=== PATIENT | male | born 1970 | race Caucasian/White ===

== ENCOUNTER 2020-06-14 10:11 | Inpatient (IN) | payer MEDICAID ==
[2020-06-14] VITALS (8 sets, daily range): BP systolic 110–141; BP diastolic 67–85
[~2020-06-14] VITALS: Ht 175.2 cm; Wt 81.0 kg
[~2020-06-14 10:11] MED LIST: AUGMENTIN 875875 MG PO; BACTRIM DS 8001 TA1 PO; FLEXERIL5 MG PO; HYDROCODONE BIT1 T11 PO; MEDROL DOSEPAK4 MG PO; PREDNISONE20 MG PO; PRILOSEC40 M1 PO; ZYRTEC10 MG PO
[2020-06-14 10:21] LABS: BASO % 0.4 % (0.0-1.0); EOS # 0.5 10*3/uL (0.0-0.4); HEMATOCRIT 43.9 % (42.0-52.0); LYMPH # 2.8 10*3/uL (1.3-4.4); LYMPH % 25.7 % (27.0-41.0); MEAN CELL VOLUME 94.6 fl (80.0-94.0); MEAN CORPUSCULAR HGB 31.3 pg (27.0-31.0); MEAN PLATELET VOLUME 10.3 fl (9.6-12.3); MONO % 9.1 % (3.0-9.0); NEUT # 6.5 10*3/uL (2.3-7.9); NEUT % 59.4 % (47.0-73.0); PLATELET COUNT AUTOMATED 270 10*3/uL (130-400); RED BLOOD COUNT 4.64 10*6/uL (4.50-5.90); RED CELL DISTRI WIDTH 12.5 % (0-14.5); WHITE BLOOD COUNT 10.9 10*3/uL (4.8-10.8)
[2020-06-14 10:36] LABS: ACT PARTIAL THROMBO TIME 28.2 SECONDS (20.0-32.1)
[2020-06-14 10:38] LABS: ALBUMIN 3.8 gm/dl (3.1-4.5); ALKALINE PHOSPHATASE 89 U/L (45-117); BUN 13 mg/dl (7-24); CHLORIDE 104 mmol/L (98-107); CREATININE 1.03 mg/dL (0.70-1.30); POTASSIUM 4.1 mmol/L (3.5-5.1); SGOT/AST 25 IU/L (3-35); SGPT/ALT 28 U/L (12-78); SODIUM 137 mmol/L (136-145); TOTAL PROTEIN 7.8 gm/dL (6.4-8.2)
[2020-06-14 10:42] LABS: TROPONIN I < 0.015 ng/ml (<0.045)
[2020-06-14] MEDS ORDERED: NEURONTIN100 MG PO (14:59)
[2020-06-15] VITALS (9 sets, daily range): BP systolic 95–145; BP diastolic 53–81
[2020-06-15 06:19] LABS: BASO % 0.2 % (0.0-1.0); EOS # 0.5 10*3/uL (0.0-0.4); EOS % 3.4 % (1.0-4.0); HEMATOCRIT 47.9 % (42.0-52.0); LYMPH # 2.8 10*3/uL (1.3-4.4); LYMPH % 19.7 % (27.0-41.0); MEAN CELL VOLUME 94.3 fl (80.0-94.0); MEAN CORPUSCULAR HGB 30.9 pg (27.0-31.0); MEAN CORPUSCULAR HGB CONC 32.8 g/dl (33.0-37.0); MEAN PLATELET VOLUME 10.6 fl (9.6-12.3); MONO # 1.4 10*3/uL (0.1-1.0); MONO % 9.6 % (3.0-9.0); NEUT # 9.6 10*3/uL (2.3-7.9); NEUT % 66.7 % (47.0-73.0); PLATELET COUNT AUTOMATED 294 10*3/uL (130-400); RED BLOOD COUNT 5.08 10*6/uL (4.50-5.90); RED CELL DISTRI WIDTH 12.4 % (0-14.5); WHITE BLOOD COUNT 14.4 10*3/uL (4.8-10.8)
[2020-06-15 06:48] LABS: BUN 13 mg/dl (7-24); CHLORIDE 102 mmol/L (98-107); CHOLESTEROL 267 mg/dL (<200); CREATININE 1.13 mg/dL (0.70-1.30); HDL CHOLESTEROL 77 mg/dl (40-60); LDL CHOLESTEROL 154 mg/dL (9-159); POTASSIUM 4.1 mmol/L (3.5-5.1); SODIUM 135 mmol/L (136-145); TRIGLYCERIDES 181 mg/dl (<150); VLDL CHOLESTEROL 36 mg/dL (6-40)
[2020-06-15 06:55] LABS: FREE T4 0.82 ng/dl (0.76-1.46)
[2020-06-15 08:20] LABS: VITAMIN D, 25-HYDROXY 24.3 ng/mL (30-100)
[2020-06-16] VITALS: BP 107/60
[2020-06-16] MEDS ORDERED: ATORVASTATIN CA20 M1 PO (10:53)
[2020-06-16] MEDS ORDERED: CARAFATE1 G1 PO (10:53)
== END 2020-06-16 11:30 | disposition home or self-care (01) | DRG 392 ==
LOC: ED 10:11 → EDHOLD 11:49 → 4E 11:49
PROVIDERS: Emergency Medicine; Hospitalist; ADMIT Family Medicine; ATTEND Family Medicine
PROC: 0DB78ZX Excision of Stomach, Pylorus, Via Natural or Artificial Opening Endoscopic, Diagnostic (ICD-10-PCS; principal; 2020-06-15)
PROC: 0DB38ZX Excision of Lower Esophagus, Via Natural or Artificial Opening Endoscopic, Diagnostic (ICD-10-PCS; 2020-06-15)
PROC: 4A02XM4 Measurement of Cardiac Total Activity, External Approach (ICD-10-PCS; 2020-06-15)
PROC: 3E073KZ Introduction of Other Diagnostic Substance into Coronary Artery, Percutaneous Approach (ICD-10-PCS; 2020-06-15)
DX: K29.00 Acute gastritis without bleeding (principal); K21.00 Gastro-esophageal reflux disease with esophagitis, without bleeding; K29.80 Duodenitis without bleeding; G62.9 Polyneuropathy, unspecified; F12.90 Cannabis use, unspecified, uncomplicated; R00.1 Bradycardia, unspecified; E78.5 Hyperlipidemia, unspecified; F17.220 Nicotine dependence, chewing tobacco, uncomplicated; D72.829 Elevated white blood cell count, unspecified; Z71.6 Tobacco abuse counseling; Z82.49 Family history of ischemic heart disease and other diseases of the circulatory system; Z83.6 Family history of other diseases of the respiratory system; Z91.013 Allergy to seafood; Z79.899 Other long term (current) drug therapy

== ENCOUNTER 2021-02-09 11:51 | Inpatient (IN) | payer OTHER ==
[~2021-02-09] VITALS: Ht 175.3 cm; Wt 73.5 kg
[~2021-02-09 11:51] MED LIST changes: +ATORVASTATIN CA20 M1 PO; +CARAFATE1 G1 PO; +NEURONTIN100 MG PO
[2021-02-09 11:54] VITALS: BP 119/63
[2021-02-09 14:05] LABS: BASO # 0.1 10*3/uL (0.0-0.1); BASO % 0.3 % (0.0-1.0); EOS # 0.3 10*3/uL (0.0-0.4); EOS % 1.6 % (1.0-4.0); HEMATOCRIT 43.2 % (42.0-52.0); LYMPH # 1.9 10*3/uL (1.3-4.4); LYMPH % 11.9 % (27.0-41.0); MEAN CELL VOLUME 93.5 fl (80.0-94.0); MEAN CORPUSCULAR HGB 30.7 pg (27.0-31.0); MEAN CORPUSCULAR HGB CONC 32.9 g/dl (33.0-37.0); MEAN PLATELET VOLUME 10.7 fl (9.6-12.3); MONO # 1.4 10*3/uL (0.1-1.0); MONO % 9.1 % (3.0-9.0); NEUT # 11.9 10*3/uL (2.3-7.9); NEUT % 76.8 % (47.0-73.0); PLATELET COUNT AUTOMATED 258 10*3/uL (130-400); RED BLOOD COUNT 4.62 10*6/uL (4.50-5.90); RED CELL DISTRI WIDTH 13.2 % (0-14.5); WHITE BLOOD COUNT 15.6 10*3/uL (4.8-10.8)
[2021-02-09 14:21] LABS: ALBUMIN 3.9 gm/dl (3.1-4.5); ALKALINE PHOSPHATASE 98 U/L (45-117); BUN 11 mg/dl (7-24); CHLORIDE 106 mmol/L (98-107); POTASSIUM 4.3 mmol/L (3.5-5.1); SGOT/AST 12 IU/L (3-35); SGPT/ALT 18 U/L (12-78); SODIUM 138 mmol/L (136-145)
[2021-02-09 17:13] VITALS: BP 112/53
[2021-02-09] MEDS ORDERED: METRONIDAZOLE500 M1 PO (17:24)
[2021-02-09] MEDS ORDERED: PENICILLIN VK500 MG PO (17:24)
[2021-02-09 21:03] VITALS: BP 118/73
[2021-02-10 05:18] LABS: ALBUMIN 3.4 gm/dl (3.1-4.5); ALKALINE PHOSPHATASE 92 U/L (45-117); BUN 9 mg/dl (7-24); CHLORIDE 106 mmol/L (98-107); CREATININE 0.97 mg/dL (0.70-1.30); FREE T4 1.03 ng/dl (0.76-1.46); SGOT/AST 12 IU/L (3-35); SGPT/ALT 16 U/L (12-78); SODIUM 138 mmol/L (136-145); TOTAL PROTEIN 7.4 gm/dL (6.4-8.2)
[2021-02-10 05:57] LABS: BASO % 0.2 % (0.0-1.0); EOS # 0.4 10*3/uL (0.0-0.4); EOS % 2.8 % (1.0-4.0); HEMATOCRIT 42.9 % (42.0-52.0); LYMPH # 2.2 10*3/uL (1.3-4.4); LYMPH % 15.9 % (27.0-41.0); MEAN CELL VOLUME 93.7 fl (80.0-94.0); MEAN CORPUSCULAR HGB 30.8 pg (27.0-31.0); MEAN CORPUSCULAR HGB CONC 32.9 g/dl (33.0-37.0); MEAN PLATELET VOLUME 11.3 fl (9.6-12.3); MONO # 1.4 10*3/uL (0.1-1.0); NEUT # 9.8 10*3/uL (2.3-7.9); NEUT % 70.8 % (47.0-73.0); PLATELET COUNT AUTOMATED 257 10*3/uL (130-400); RED BLOOD COUNT 4.58 10*6/uL (4.50-5.90); RED CELL DISTRI WIDTH 13.2 % (0-14.5); WHITE BLOOD COUNT 13.9 10*3/uL (4.8-10.8)
[2021-02-10 07:30] VITALS: BP 199/60
[2021-02-10 09:38] VITALS: BP 114/67
[2021-02-10 17:20] VITALS: BP 148/67
[2021-02-10 20:00] VITALS: BP 105/61
[2021-02-11] VITALS: BP 100/50
[2021-02-11 06:37] LABS: BASO % 0.1 % (0.0-1.0); EOS % 0.3 % (1.0-4.0); HEMATOCRIT 41.7 % (42.0-52.0); LYMPH # 2.5 10*3/uL (1.3-4.4); LYMPH % 17.7 % (27.0-41.0); MEAN CELL VOLUME 92.1 fl (80.0-94.0); MEAN CORPUSCULAR HGB 30.7 pg (27.0-31.0); MEAN CORPUSCULAR HGB CONC 33.3 g/dl (33.0-37.0); MEAN PLATELET VOLUME 10.4 fl (9.6-12.3); MONO # 1.3 10*3/uL (0.1-1.0); MONO % 9.5 % (3.0-9.0); NEUT # 10.2 10*3/uL (2.3-7.9); PLATELET COUNT AUTOMATED 277 10*3/uL (130-400); RED BLOOD COUNT 4.53 10*6/uL (4.50-5.90); RED CELL DISTRI WIDTH 12.6 % (0-14.5); WHITE BLOOD COUNT 14.2 10*3/uL (4.8-10.8)
[2021-02-11 06:50] LABS: BUN 11 mg/dl (7-24); CHLORIDE 107 mmol/L (98-107); CREATININE 0.93 mg/dL (0.70-1.30); POTASSIUM 3.9 mmol/L (3.5-5.1); SODIUM 137 mmol/L (136-145)
[2021-02-11 08:00] VITALS: BP 117/72
[2021-02-11 12:00] VITALS: BP 123/60
[2021-02-11 16:00] VITALS: BP 128/75
[2021-02-11 20:00] VITALS: BP 126/70
[2021-02-12 00:20] VITALS: BP 115/59
[2021-02-12 06:42] LABS: BASO % 0.5 % (0.0-1.0); EOS # 0.5 10*3/uL (0.0-0.4); EOS % 6.4 % (1.0-4.0); HEMATOCRIT 42.6 % (42.0-52.0); LYMPH # 2.7 10*3/uL (1.3-4.4); LYMPH % 36.1 % (27.0-41.0); MEAN CELL VOLUME 94.5 fl (80.0-94.0); MEAN CORPUSCULAR HGB 30.6 pg (27.0-31.0); MEAN CORPUSCULAR HGB CONC 32.4 g/dl (33.0-37.0); MEAN PLATELET VOLUME 10.8 fl (9.6-12.3); MONO # 0.7 10*3/uL (0.1-1.0); MONO % 9.5 % (3.0-9.0); NEUT # 3.5 10*3/uL (2.3-7.9); NEUT % 47.1 % (47.0-73.0); PLATELET COUNT AUTOMATED 294 10*3/uL (130-400); RED BLOOD COUNT 4.51 10*6/uL (4.50-5.90); RED CELL DISTRI WIDTH 12.8 % (0-14.5); WHITE BLOOD COUNT 7.4 10*3/uL (4.8-10.8)
[2021-02-12 06:51] LABS: BUN 13 mg/dl (7-24); CHLORIDE 106 mmol/L (98-107); POTASSIUM 4.2 mmol/L (3.5-5.1); SODIUM 139 mmol/L (136-145)
[2021-02-12 08:00] VITALS: BP 117/66
[2021-02-12 12:00] VITALS: BP 137/72
[2021-02-12] MEDS ORDERED: CLINDAMYCIN HC300 MG PO (13:06)
== END 2021-02-12 14:08 | disposition home or self-care (01) | DRG 114 ==
LOC: ED 11:51 → EDHOLD 17:27 → 5E 17:27
PROVIDERS: Internal Medicine; Student in an Organized Health Care Education/Training Program; ADMIT Emergency Medicine; ATTEND Emergency Medicine
DX: K04.7 Periapical abscess without sinus (principal); K21.9 Gastro-esophageal reflux disease without esophagitis; K44.9 Diaphragmatic hernia without obstruction or gangrene; D64.9 Anemia, unspecified; R00.1 Bradycardia, unspecified; R73.9 Hyperglycemia, unspecified; G62.9 Polyneuropathy, unspecified; L03.211 Cellulitis of face; Z91.013 Allergy to seafood; Z82.49 Family history of ischemic heart disease and other diseases of the circulatory system; Z82.5 Family history of asthma and other chronic lower respiratory diseases; Z68.23 Body mass index [BMI] 23.0-23.9, adult

== ENCOUNTER → 2021-06-14 | Outpatient (CLI) | payer OTHER ==
[~2021-06-14] MED LIST changes: +CLINDAMYCIN HC300 MG PO; +METRONIDAZOLE500 M1 PO; +PENICILLIN VK500 MG PO
== END | disposition home or self-care (01) ==
LOC: US 10:47
PROVIDERS: ATTEND Preventive Medicine Occupational Medicine
DX: K80.20 Calculus of gallbladder without cholecystitis without obstruction (principal); K82.8 Other specified diseases of gallbladder; R63.4 Abnormal weight loss; R10.11 Right upper quadrant pain; R11.0 Nausea

== ENCOUNTER 2021-08-18 18:17 | Inpatient (IN) | payer OTHER ==
[~2021-08-18] VITALS: Ht 172.7 cm; Wt 67.6 kg
[2021-08-18 18:55] VITALS: BP 104/61
[2021-08-18 19:08] LABS: BASO % 0.4 % (0.0-1.0); EOS # 0.3 10*3/uL (0.0-0.4); EOS % 2.6 % (1.0-4.0); LYMPH # 2.7 10*3/uL (1.3-4.4); LYMPH % 25.4 % (27.0-41.0); MEAN CELL VOLUME 92.8 fl (80.0-94.0); MEAN CORPUSCULAR HGB 30.9 pg (27.0-31.0); MEAN CORPUSCULAR HGB CONC 33.3 g/dl (33.0-37.0); MEAN PLATELET VOLUME 9.9 fl (9.6-12.3); MONO % 9.4 % (3.0-9.0); NEUT # 6.6 10*3/uL (2.3-7.9); NEUT % 61.9 % (47.0-73.0); PLATELET COUNT AUTOMATED 230 10*3/uL (130-400); RED BLOOD COUNT 3.88 10*6/uL (4.50-5.90); RED CELL DISTRI WIDTH 13.5 % (0-14.5); WHITE BLOOD COUNT 10.6 10*3/uL (4.8-10.8)
[2021-08-18 19:19] LABS: ACT PARTIAL THROMBO TIME 29.5 SECONDS (20.0-32.1)
[2021-08-18 19:26] LABS: ALKALINE PHOSPHATASE 72 U/L (45-117); BUN 11 mg/dl (7-24); CHLORIDE 109 mmol/L (98-107); CREATININE 0.81 mg/dL (0.70-1.30); POTASSIUM 3.7 mmol/L (3.5-5.1); SGOT/AST 21 IU/L (3-35); SGPT/ALT 22 U/L (12-78); SODIUM 141 mmol/L (136-145); TOTAL PROTEIN 6.5 gm/dL (6.4-8.2)
[2021-08-18 21:52] VITALS: BP 96/48
[2021-08-18] MEDS ORDERED: VITAMIN D325 MCG PO (23:41)
[2021-08-19 00:56] LABS: BILIRUBIN Negative (Negative); BLOOD Negative (Negative); CLARITY Clear (Clear); COLOR Yellow (Yellow); GLUCOSE Negative (Negative); KETONE Negative (Negative); LEUKO ESTERASE Trace (Negative); NITRITE Negative (Negative); PH 6.5 (4.5-8.0)
[2021-08-19 01:11] VITALS: BP 108/65
[2021-08-19 01:17] LABS: BACTERIA TRACE; MUCOUS 1+
[2021-08-19 01:20] VITALS: BP 112/71
[2021-08-19 08:00] VITALS: BP 122/63
[2021-08-19 12:00] VITALS: BP 112/67
[2021-08-19 16:00] VITALS: BP 110/63
[2021-08-19 20:00] VITALS: BP 109/49
[2021-08-20] VITALS (11 sets, daily range): BP systolic 108–144; BP diastolic 59–81
[2021-08-20 06:16] LABS: BASO % 0.5 % (0.0-1.0); EOS # 0.3 10*3/uL (0.0-0.4); EOS % 5.2 % (1.0-4.0); HEMATOCRIT 36.2 % (42.0-52.0); LYMPH # 1.9 10*3/uL (1.3-4.4); LYMPH % 33.1 % (27.0-41.0); MEAN CELL VOLUME 92.8 fl (80.0-94.0); MEAN CORPUSCULAR HGB 31.3 pg (27.0-31.0); MEAN CORPUSCULAR HGB CONC 33.7 g/dl (33.0-37.0); MEAN PLATELET VOLUME 10.4 fl (9.6-12.3); MONO # 0.5 10*3/uL (0.1-1.0); MONO % 8.8 % (3.0-9.0); NEUT # 2.9 10*3/uL (2.3-7.9); NEUT % 52.2 % (47.0-73.0); PLATELET COUNT AUTOMATED 232 10*3/uL (130-400); RED CELL DISTRI WIDTH 13.4 % (0-14.5); WHITE BLOOD COUNT 5.6 10*3/uL (4.8-10.8)
[2021-08-20 06:32] LABS: BUN 6 mg/dl (7-24); CHLORIDE 110 mmol/L (98-107); POTASSIUM 3.9 mmol/L (3.5-5.1); SODIUM 142 mmol/L (136-145)
[2021-08-20 06:38] LABS: ALKALINE PHOSPHATASE 59 U/L (45-117); CREATININE 0.89 mg/dL (0.70-1.30); SGOT/AST 20 IU/L (3-35); SGPT/ALT 19 U/L (12-78)
[2021-08-21] VITALS: BP 104/46
[2021-08-21 05:47] LABS: BUN 9 mg/dl (7-24); CHLORIDE 108 mmol/L (98-107); CREATININE 0.89 mg/dL (0.70-1.30); POTASSIUM 3.9 mmol/L (3.5-5.1); SODIUM 141 mmol/L (136-145)
[2021-08-21 06:19] LABS: BASO % 0.1 % (0.0-1.0); HEMATOCRIT 34.8 % (42.0-52.0); LYMPH # 1.1 10*3/uL (1.3-4.4); LYMPH % 10.6 % (27.0-41.0); MEAN CELL VOLUME 92.8 fl (80.0-94.0); MEAN CORPUSCULAR HGB 31.5 pg (27.0-31.0); MEAN CORPUSCULAR HGB CONC 33.9 g/dl (33.0-37.0); MONO % 9.9 % (3.0-9.0); NEUT # 8.2 10*3/uL (2.3-7.9); NEUT % 79.1 % (47.0-73.0); PLATELET COUNT AUTOMATED 224 10*3/uL (130-400); RED BLOOD COUNT 3.75 10*6/uL (4.50-5.90); RED CELL DISTRI WIDTH 13.1 % (0-14.5); WHITE BLOOD COUNT 10.3 10*3/uL (4.8-10.8)
[2021-08-21 08:00] VITALS: BP 118/52
[2021-08-21] MEDS ORDERED: HYDROCODONE-AC1 EAC1 PO (10:54)
[2021-08-21 12:00] VITALS: BP 137/76
== END 2021-08-21 14:00 | disposition home or self-care (01) | DRG 263 ==
LOC: ED 18:17 → EDHOLD 23:57 → 5E 23:57
PROVIDERS: Emergency Medicine; Internal Medicine; ADMIT Internal Medicine; ATTEND Internal Medicine
PROC: 3E0T3BZ Introduction of Anesthetic Agent into Peripheral Nerves and Plexi, Percutaneous Approach (ICD-10-PCS; principal; 2021-08-20)
PROC: 3E0T33Z Introduction of Anti-inflammatory into Peripheral Nerves and Plexi, Percutaneous Approach (ICD-10-PCS; 2021-08-20)
PROC: 0FT44ZZ Resection of Gallbladder, Percutaneous Endoscopic Approach (ICD-10-PCS; 2021-08-20)
DX: K80.12 Calculus of gallbladder with acute and chronic cholecystitis without obstruction (principal); K21.9 Gastro-esophageal reflux disease without esophagitis; G62.9 Polyneuropathy, unspecified; F12.90 Cannabis use, unspecified, uncomplicated; D64.9 Anemia, unspecified; E87.8 Other disorders of electrolyte and fluid balance, not elsewhere classified; M48.061 Spinal stenosis, lumbar region without neurogenic claudication; Z91.013 Allergy to seafood; Z87.891 Personal history of nicotine dependence; Z83.6 Family history of other diseases of the respiratory system; Z82.49 Family history of ischemic heart disease and other diseases of the circulatory system

== ENCOUNTER 2023-09-28 23:57 | Observation (INO) | payer OTHER ==
[~2023-09-28] VITALS: Ht 172.7 cm; Wt 86.2 kg
[~2023-09-28 23:57] MED LIST changes: +HYDROCODONE-AC1 EAC1 PO; +VITAMIN D325 MCG PO
[2023-09-29] VITALS (10 sets, daily range): BP systolic 117–168; BP diastolic 62–89
[2023-09-29] MEDS ORDERED: Glucagon Hydrochloride 1 MG SYR IV ONE (00:20)
[2023-09-29] MEDS ORDERED: methylPREDNISolone sod succ 125 MG VIAL IV ONE (00:20)
[2023-09-29] MEDS ORDERED: SODIUM CHLORIDE 0.9% 1,000 ML IV ONE (01:20)
[2023-09-29 01:35] LABS: BASO # 0.1 10*3/uL (0.0-0.1); BASO % 0.6 % (0.0-1.0); EOS # 0.5 10*3/uL (0.0-0.4); EOS % 4.9 % (1.0-4.0); HEMATOCRIT 44.2 % (42.0-52.0); LYMPH # 2.3 10*3/uL (1.3-4.4); LYMPH % 22.5 % (27.0-41.0); MEAN CELL VOLUME 91.7 fl (80.0-94.0); MEAN CORPUSCULAR HGB 30.7 pg (27.0-31.0); MEAN CORPUSCULAR HGB CONC 33.5 g/dl (33.0-37.0); MONO # 0.8 10*3/uL (0.1-1.0); MONO % 7.5 % (3.0-9.0); NEUT # 6.5 10*3/uL (2.3-7.9); NEUT % 64.2 % (47.0-73.0); PLATELET COUNT AUTOMATED 277 10*3/uL (130-400); RED BLOOD COUNT 4.82 10*6/uL (4.50-5.90); RED CELL DISTRI WIDTH 12.5 % (0-14.5); WHITE BLOOD COUNT 10.1 10*3/uL (4.8-10.8)
[2023-09-29 01:48] LABS: BUN 13 mg/dl (9-23); CHLORIDE 110 mmol/L (98-107); POTASSIUM 3.9 mmol/L (3.4-5.1)
[2023-09-29] MEDS ORDERED: SODIUM CHLORIDE 0.9% 1,000 ML IV SCH (02:55)
[2023-09-29] MEDS ORDERED: TEMAZEPAM 15 MG CAP PO PRN (02:55)
[2023-09-29] MEDS ORDERED: Magnesium Hydroxide 30 ML UDC PO PRN (02:55)
[2023-09-29] MEDS ORDERED: ACETAMINOPHEN 650 MG SUPP R PRN (02:55)
[2023-09-29] MEDS ORDERED: BISACODYL 10 MG SUPP R PRN (02:55)
[2023-09-29] MEDS ORDERED: Acetaminophen/Hydrocodone 5 MG/325 MG TABLET PO PRN (02:55)
[2023-09-29] MEDS ORDERED: BISACODYL 5 MG TAB PO PRN (02:55)
[2023-09-29] MEDS ORDERED: Ondansetron Hydrochloride 4 MG/2 ML VIAL IV PRN (02:55)
[2023-09-29] MEDS ORDERED: ACETAMINOPHEN 325 MG TAB PO PRN (02:55)
[2023-09-29 06:16] LABS: HEMATOCRIT 45.6 % (42.0-52.0); MEAN CELL VOLUME 91.8 fl (80.0-94.0); MEAN CORPUSCULAR HGB 30.2 pg (27.0-31.0); MEAN CORPUSCULAR HGB CONC 32.9 g/dl (33.0-37.0); MEAN PLATELET VOLUME 10.2 fl (9.6-12.3); PLATELET COUNT AUTOMATED 286 10*3/uL (130-400); RED BLOOD COUNT 4.97 10*6/uL (4.50-5.90); RED CELL DISTRI WIDTH 12.6 % (0-14.5); WHITE BLOOD COUNT 13.3 10*3/uL (4.8-10.8)
[2023-09-29 06:25] LABS: ACT PARTIAL THROMBO TIME 29.9 SECONDS (20.0-32.1)
[2023-09-29] MEDS ORDERED: NEURONTIN300 MG PO (06:32)
[2023-09-29 06:38] LABS: MANUAL DIFF REFLEX YES
[2023-09-29 07:02] LABS: ALKALINE PHOSPHATASE 97 U/L (46-116); BUN 14 mg/dl (9-23); CHLORIDE 112 mmol/L (98-107); CHOLESTEROL 127 mg/dL (<200); FREE T4 1.03 ng/dl (0.89-1.76); LDL CHOLESTEROL 53 mg/dL (9-159); POTASSIUM 3.9 mmol/L (3.4-5.1); SGPT/ALT 13 U/L (5-49); TOTAL PROTEIN 7.2 gm/dL (6.0-8.0); TRIGLYCERIDES 83 mg/dl (<150)
[2023-09-29 07:34] LABS: VITAMIN D, 25-HYDROXY 52.5 ng/mL (30-100)
[2023-09-29 07:47] LABS: PLATELET SUFFICIENCY NORMAL (NORMAL); TOTAL CELLS COUNTED 100 #CELLS
[2023-09-29] MEDS ORDERED: Lactated Ringer's Solution 1,000 ML IV ONE ×2 (08:00→08:15)
[2023-09-29] MEDS ORDERED: POTASSIUM PHOSPHATE 40 MMOL in SODIUM CHLORIDE 0.9% 500 ML IV ONE (08:30)
[2023-09-29] MEDS ORDERED: Enoxaparin Sodium 40 MG/0.4 ML SYR SC SCH (10:00)
[2023-09-29] MEDS ORDERED: Piperacillin Sodium/Tazobact 50 ML IV ONE (10:25)
[2023-09-29] MEDS ORDERED: FLUCONAZOLE 200 ML IV SCH (18:00)
[2023-09-29] MEDS ORDERED: fentaNYL CITRATE 100 MCG/2 ML VIAL IV ONE (18:39)
[2023-09-29] MEDS ORDERED: Dexamethasone Sodium Phospha 20 MG/5 ML VIAL IV ONE (18:39)
[2023-09-29] MEDS ORDERED: Lidocaine Hydrochloride 2% 10 ML AMP IM ONE (18:39)
[2023-09-29] MEDS ORDERED: Ondansetron Hydrochloride 4 MG/2 ML VIAL IV ONE (18:39)
[2023-09-29] MEDS ORDERED: Succinylcholine Chloride 200 MG/10 ML SYRINGE IV ONE (18:39)
[2023-09-29] MEDS ORDERED: PROPOFOL 200 MG/20 ML VIAL IV ONE (18:39)
[2023-09-29] MEDS ORDERED: SEVOFLURANE 250 ML BOT INH ONE (18:39)
== END 2023-09-29 21:05 | disposition short-term general hospital (02) ==
LOC: ED 23:57 → 4E 09-29 02:47 → EDHOLD 09-29 02:47 → 4E 09-29 16:45
PROVIDERS: Internal Medicine; Student in an Organized Health Care Education/Training Program; ADMIT Internal Medicine; ATTEND Internal Medicine
DX: T18.128A Food in esophagus causing other injury, initial encounter (principal); K21.9 Gastro-esophageal reflux disease without esophagitis; E87.8 Other disorders of electrolyte and fluid balance, not elsewhere classified; M48.061 Spinal stenosis, lumbar region without neurogenic claudication; G62.9 Polyneuropathy, unspecified; K44.9 Diaphragmatic hernia without obstruction or gangrene; E78.5 Hyperlipidemia, unspecified; R00.1 Bradycardia, unspecified; D72.829 Elevated white blood cell count, unspecified; E83.39 Other disorders of phosphorus metabolism; R73.9 Hyperglycemia, unspecified; K22.89 Other specified disease of esophagus; Z79.899 Other long term (current) drug therapy; Y92.89 Other specified places as the place of occurrence of the external cause

== ENCOUNTER → 2023-10-23 | Outpatient (CLI) | payer OTHER ==
[~2023-10-23] MED LIST changes: +IOHEXOL 300 MG/ML 100 ML VIAL IV ONE; +NEURONTIN300 MG PO
== END | disposition home or self-care (01) ==
LOC: CT 07:49
PROVIDERS: ATTEND Nurse Practitioner
DX: K76.0 Fatty (change of) liver, not elsewhere classified (principal); K22.3 Perforation of esophagus

== ENCOUNTER → 2024-02-13 | Outpatient (CLI) | payer OTHER ==
[~2024-02-13] MED LIST changes: -IOHEXOL 300 MG/ML 100 ML VIAL IV ONE
== END | disposition home or self-care (01) ==
LOC: CARD 08:01
PROVIDERS: ATTEND Internal Medicine Cardiovascular Disease
DX: I49.3 Ventricular premature depolarization (principal); R00.1 Bradycardia, unspecified

== ENCOUNTER → 2024-03-02 | Outpatient (CLI) | payer OTHER ==
[~2024-03-02] MED LIST changes: +PANTOPRAZOLE SO40 MG PO
== END | disposition home or self-care (01) ==
LOC: CARD 00:38
PROVIDERS: ATTEND Internal Medicine Cardiovascular Disease
DX: R00.1 Bradycardia, unspecified (principal); R94.31 Abnormal electrocardiogram [ECG] [EKG]; Z82.49 Family history of ischemic heart disease and other diseases of the circulatory system